=== PATIENT | male | born 1965 | race Caucasian/White ===

== ENCOUNTER 2019-05-10 06:15 | Day surgery (SDC) | payer OTHER ==
[~2019-05-10] VITALS: Ht 182.9 cm; Wt 157.9 kg
--- NOTE | ~2019-05-10 | O ---
[facility] [place] [address] OPERATIVE REPORT Name: OLI MENG Room #: 150-8 [facility]#: [id number] Admission: 05/10/19 ������������������ Attend Phys: Sky Menard MD Discharge: ������������������ Date of : 67 Report #: [id number] THIS REPORT FOR: //name// CC: NICKI OCHOA Physician staff Sky Menard DATE OF SERVICE: 05/10/[address] Sky Menard. PREOPERATIVE DIAGNOSIS: Umbilical hernia. POSTOPERATIVE DIAGNOSIS: Umbilical hernia. PROCEDURE: Umbilical hernia repair. SURGEON: Sky Menard MD ANESTHESIA: Local with IV sedation. DESCRIPTION OF PROCEDURE: The patient was brought to the operating room and placed on operative table in the supine position. Sequential compression devices were in place for DVT prophylaxis. There was no indication for preoperative antibiotics. The patient underwent IV sedation. The abdomen was then prepped and draped in a sterile fashion. Skin and subcutaneous tissue were then infiltrated with 0.5% Marcaine and 1% Xylocaine in a 1:1 mixture. Transverse infraumbilical skin incision was then performed using #15 scalpel blade. Hemostasis obtained using electrocautery. Dissection was carried down through subcutaneous tissue to the fascial defect, which was dissected free. The fascial edges were then reapproximated closing the hernia using simple interrupted #1 Prolene sutures. The umbilicus was then tacked to the fascia using simple interrupted 2-0 chromic suture. Deep and superficial subcutaneous tissue then reapproximated using simple interrupted 2-0 chromic sutures, and the skin then closed with a running 4-0 subcuticular Vicryl stitch. Wound was then dressed with Dermabond, Telfa, 4 x 4 gauze, sponge and tape. The patient was then awakened from the IV sedation, taken to recovery room in good condition. Estimated blood loss was approximately 5 mL, and the patient tolerated procedure well. All sponge, lap and instrument counts correct x 2. ��������������������������������������������� ���������������������������������������� By: ��������������������������������������������� [id number] Sky Menard MD /nt
[~2019-05-10 06:15] MED LIST: ASPER-FLEX85 GM TOP; CALCIUM MAGNES1 EAC2 PO; CYCLOBENZAPRINE10 MG PO; CYMBALTA30 MG PO; ETODOLAC500 MG PO; FISH OIL 1,001000 M2 PO; HYDROXYZINE HCL50 MG PO; LOSARTAN POTASS50 MG PO; METFORMIN HCL500 MG PO; METHOCARBAMOL500 M2 PO; NASACORT10.8 ML NASAL; OMEPRAZOLE 20 M20 M1 PO; PROPRANOLOL 1010 MG PO; VITAMIN B-12500 MC5 PO; VITAMIN D31000 UNIT PO; ZOCOR20 MG PO; ZOLOFT100 MG PO
[2019-05-10 09:22] VITALS: BP 110/49
[2019-05-10] MEDS ORDERED: NORCO 5-325 TA1 EAC1 PO ×2 (11:05→11:07)
--- NOTE | 2019-05-10 16:51 | EKG ---
[place] [address] [facility] [place] [address] ELECTROCARDIOGRAM REPORT Name: JI MENGArun Love Room #: [facility]#: [id number] ������������������ Admission: 05/10/19 ������������������ Attend Phys: Sky Menard MD Discharge: 05/10/19 ������������������ Date of : 67 Report #: [id number] ����������������������������������������������������������������� [id number] THIS REPORT FOR: //name// [facility] Test Date: 2019-05-10 Test Time: 09:09:26 Pat Name: OLI MENG Department: Room: 150 8 Gender: M Faith Healer: ОЛЕГ : 1965 Requested By: Sky Menard Order Number: [id number] MD: Chavez Han Measurements Intervals [place] Rate: 71 P: 52 WA: 190 QRS: 11 QRSD: 95 T: 35 QT: 403 QTc: 438 Interpretive Statements Sinus rhythm Poor R wave progression No previous ECG available for comparison Electronically Signed On 05-10-2019 16:51:28 CDT by Chavez Han [email or web address] ��������������������������������������������� <ELECTRONICALLY SIGNED> ���������������������������������������� By: Chavez Han MD, [facility] ��������������������������������������������� 05/10/19 [id number] Chavez Han MD, FACC /EPI
== END 2019-05-10 12:45 | disposition home or self-care (01) ==
LOC: TBA 06:15 → OR 06:15 → TBA 06:16 → OR 11:37
DX: K42.9 Umbilical hernia without obstruction or gangrene (principal); I10 Essential (primary) hypertension; E11.9 Type 2 diabetes mellitus without complications; E78.00 Pure hypercholesterolemia, unspecified; G47.30 Sleep apnea, unspecified; K21.9 Gastro-esophageal reflux disease without esophagitis; J45.909 Unspecified asthma, uncomplicated; F32.9 Major depressive disorder, single episode, unspecified; F41.9 Anxiety disorder, unspecified; Z98.890 Other specified postprocedural states; Z79.891 Long term (current) use of opiate analgesic; Z88.8 Allergy status to other drugs, medicaments and biological substances; Z79.899 Other long term (current) drug therapy
CPT/HCPCS: 50010; 50101; 50386; 50417; 54118; 56524; 56525; 56526; 62110; 62850; 70005